=== PATIENT | male | born 1940 | race Caucasian/White ===

== ENCOUNTER 2018-06-14 22:51 | Inpatient (IN) ==
[2018-06-15] MEDS ORDERED: Acetaminophen 325 MG Tablet PO PRN (03:58)
[2018-06-15] MEDS ORDERED: Bisacodyl 10 MG Supp RECTAL PRN (03:58)
[2018-06-15] MEDS: Sod Chloride 0.9% Inj 1,000 ML IV.CONT SCH (04:48)
[2018-06-15 08:06] LABS: Baso # (Auto) 0.1 th/mm3 (0.0-0.2); Baso % (Auto) 0.9 % (0.0-2.0); Eos # (Auto) 0.1 th/mm3 (0.0-0.4); Eos % (Auto) 0.8 % (0.0-4.0); Hemoglobin 12.1 gm/dL (13.0-17.0); Lymph # (Auto) 1.6 th/mm3 (1.0-4.8); Lymph % (Auto) 25.2 % (9.0-44.0); Mean Corpuscular HGB Conc 33.6 % (32.0-36.0); Mean Corpuscular Hemoglobin 31.4 pg (27.0-34.0); Mean Corpuscular Volume 93.4 fL (80.0-100.0); Mean Platelet Volume 9.3 fL (7.0-11.0); Mono # (Auto) 0.6 th/mm3 (0.0-0.9); Mono % (Auto) 9.8 % (0.0-8.0); Neut % (Auto) 63.3 % (16.0-70.0); Platelet Count 189 th/mm3 (150-450); Red Blood Count 3.85 mil/mm3 (4.50-5.90); Red Cell Distribution Width 12.7 % (11.6-17.2); White Blood Count 6.4 th/mm3 (4.0-11.0)
[2018-06-15 08:19] LABS: Chloride 106 meq/L (98-107); Potassium 3.8 meq/L (3.5-5.1); Sodium 141 meq/L (136-145)
[2018-06-15 08:28] LABS: Albumin 3.3 g/dL (3.4-5.0); Anion Gap 10 meq/L (5-15); Blood Urea Nitrogen 14 mg/dL (7-18); Calcium 8.6 mg/dL (8.5-10.1); Carbon Dioxide 24.9 meq/L (21.0-32.0); Glucose,Random 230 mg/dL (74-106)
[2018-06-15 08:31] LABS: Alanine Aminotransferase 16 U/L (12-78); Aspartate Aminotransferase 7 U/L (15-37); Glomerular Filtration Rate Greater Than 89 mL/min (>89)
[2018-06-15 08:33] LABS: Total Protein 6.2 g/dL (6.4-8.2)
[2018-06-15 08:34] LABS: Alkaline Phosphatase 63 U/L (45-117)
[2018-06-15] MEDS: Senna/Docusate Sodium 8.6/50 MG Tablet PO SCH ×2 (09:27→21:48)
[2018-06-15] MEDS ORDERED: Haloperidol Inj 5 MG/ML Ampul IV.PUSH PRN ×2 (15:24→15:31)
--- NOTE | 2018-06-15 15:28 | P.HPIM ---
History of Present Illness Primary Care Physician: Gagan Fermin History of Present Illness: 77-year-old Citizen Of The [place] male with known history of hypertension, hyperlipidemia, diabetes who presented to the hospital for evaluation of altered mental status. The patient is orientated to self, state, not the city. He knows he is in the hospital. He knows the month and year. But not day of the week. He does know Top[place] is the president and is trying to build a wall. However patient does have some altered mentation and information was taken from family at bedside. It was indicated that the patient had glaucoma surgery on his right eye about 6 months ago and since then he has had a change in mentation. They indicate a change in mentation has been with memory problems, visual hallucinations. Somewhat mentioned to him that he may be developing dementia. They indicated that they did notify their primary medical doctor and they were told that they needed to get a referral to a neurologist for further evaluation and management. Because the patient has not get any better they came to the hospital for evaluation. 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 They indicate that the patient was rather active. Drinker anywhere from 4 or more beers daily. Patient's indicates that since he had his glaucoma surgery he has cut back on his alcohol intake and since then his mentation has worsened. Patient had evaluation in emergency department and found to have uncontrolled diabetes, possible urinary tract infection and because of that it was recommended that the patient be observed in the hospital for further evaluation and management. Review of Systems ROS Unobtainable: unobtainable due to mental status PMFSH History History Provided By: Family Member Medical History Medical History Hyperlipidemia (Acute) HTN (hypertension) (Acute) Prostate CA (Acute) Type 2 diabetes mellitus (Acute) Surgical History Surgical History H/O eye surgery (Acute) Family History Family History Other Family history of diabetes mellitus Family history of heart disease Social History Social History Substance History: No History of Abuse Second Hand Smoke Exposure: No Smoking Status: Never smoker How Often Do You Have a Drink Containing Alcohol: 2 to 4 times a month Immunization History Hx Influenza Vaccine This Season: No Medications and Allergies Allergies Allergy/AdvReac Type Severity Reaction Status Date / Time No Known Allergies Allergy Verified 06/15/18 00:40 Home Medications Medication Instructions Recorded Confirmed Type metformin 500 mg PO BID 06/15/18 06/15/18 History Active Medications: Active Medications Acetaminophen (Tylenol) 650 mg PO Q4H PRN PRN Reason: Temp > 100.4 Al Hydroxide/Mg Hydroxide (Milk Of Magnesia Liq) 30 ml PO Q12H PRN PRN Reason: Mild Constipation Bisacodyl (Dulcolax Supp) 10 mg RECTAL DAILY PRN PRN Reason: SEVERE CONSITIPATION Sodium Chloride (Ns Inj) 1,000 mls @ 100 mls/hr IV.CONT .Q10H [facility] Last Admin: 06/15/18 04:48 Dose: 100 mls/hr Lactulose (Lactulose Liq) 30 ml PO DAILY PRN PRN Reason: SEVERE CONSITIPATION Ondansetron HCl (Zofran Inj) 4 mg IV.PUSH Q6H PRN PRN Reason: NAUSEA OR VOMITING Senna/Docusate Sodium (Kristi-Colace) 1 tab PO BID [facility] Last Admin: 06/15/18 09:27 Dose: 1 tab Sennosides (Senokot) 17.2 mg PO Q12H PRN PRN Reason: Moderate Constipation Sodium Chloride (Ns Flush) 2 ml IV.FLUSH BID [facility] Last Admin: 06/15/18 11:35 Dose: Not Given Sodium Chloride (Ns Flush) 2 ml IV.FLUSH PRN PRN PRN Reason: FLUSH AFTER USING IV ACCESS Physical Exam Vital signs: Vital Signs 06/15/18 04:00 06/15/18 08:00 Temperature 96.8 F L 97.8 F Pulse Rate 96 H 91 H Respiratory Rate 16 20 Blood Pressure 166/81 H 139/72 Pulse Oximetry 96 97 Intake & Output 06/14/18 06/15/18 06/15/18 18:59 06:59 18:59 Intake Total 0 / 0 Output Total 200 / 200 Balance -200 / -200 0 / 0 Weight 60.6 kg Intake: Oral 0 / 0 Output: Urine 200 / 200 Narrative: GENERAL: Well-developed, well-nourished, in no acute distress. alert and orientated to person, state, month, year, president, current events HEENT: Head is normocephalic without any lesions or masses noted. Facial features are symmetric. Eyes: Patient does have injected conjunctivae on the right eye with obvious surgical changes extraocular muscles are intact. Oropharyngeal: Pharynx without any erythema edema. Tongue is midline without deviation. Buccal mucosa is moist without any masses or lesions NECK: Supple without any masses. Trachea midline no deviation. No JVD, no bruits are appreciated CARDIAC: Regular rhythm, regular rate. S1/S2 are heard. No murmurs gallops or rubs. LUNGS: Clear to auscultation bilaterally. No wheeze, rhonchi or rales. No use of accessory muscles on inspiration or expiration. ABDOMEN: Soft, nontender. Nondistended. Bowel sounds heard in all 4 quadrants. No organomegaly or masses. Negative rebound, negative guarding EXTREMITIES: No edema, pulses are equal bilaterally. No cyanosis or clubbing NEUROLOGY: Mood and affect appear appropriate. Cranial nerves II through XII grossly intact. Muscle strength 5/5 in upper and lower extremities bilaterally. Deep tendon reflexes are 2+ in upper and lower extremities bilaterally. Results Labs CBC & Chem 7: 06/15/18 06:51 06/15/18 06:51 Caprini VTE Risk Assessment Caprini VTE Risk Assessment: Moderate/High Risk (score >= 2) Caprini Risk Assessment Model: Point Value = 1 Point Value = 2 Point Value = 3 Point Value = 5 Age 41-60 Minor surgery BMI > 25 kg/m2 Swollen legs Varicose veins or History of unexplained or recurrent spontaneous Oral contraceptives or hormone replacement Sepsis (< 1 month) Serious lung disease, including pneumonia (< 1 month) Abnormal pulmonary function Acute myocardial infarction Congestive heart failure (< 1 month) History of inflammatory bowel disease Medical patient at bed rest Age 61-74 Arthroscopic surgery Major open surgery (> 45 min) Laparoscopic surgery (> 45 min) Malignancy Confined to bed (> 72 hours) Immobilizing plaster cast Central venous access Age >= 75 History of VTE Family history of VTE Factor V Leiden Prothrombin [id number] Lupus anticoagulant Anticardiolipin antibodies Elevated serum homocysteine Heparin-induced thrombocytopenia Other congenital or acquired thrombophilia Stroke (< 1 month) Elective arthroplasty Hip, pelvis, or leg fracture Acute spinal cord injury (< 1 month) Prophylaxis Regimen: Total Risk Factor Score Risk Level Prophylaxis Regimen 0-1 Low Early ambulation 2 Moderate Order ONE of the following: *Sequential Compression Device (SCD) *Heparin 5000 units SQ BID 3-4 Higher Order ONE of the following medications: *Heparin 5000 units SQ TID *Enoxaparin/Lovenox 40 mg SQ daily (WT < 150 kg, CrCl > 30 mL/min) *Enoxaparin/Lovenox 30 mg SQ daily (WT < 150 kg, CrCl > 10-29 mL/min) *Enoxaparin/Lovenox 30 mg SQ BID (WT < 150 kg, CrCl > 30 mL/min) AND/OR *Sequential Compression Device (SCD) 5 or more Highest Order ONE of the following medications: *Heparin 5000 units SQ TID (Preferred with Epidurals) *Enoxaparin/Lovenox 40 mg SQ daily (WT < 150 kg, CrCl > 30 mL/min) *Enoxaparin/Lovenox 30 mg SQ daily (WT < 150 kg, CrCl > 10-29 mL/min) *Enoxaparin/Lovenox 30 mg SQ BID (WT < 150 kg, CrCl > 30 mL/min) AND *Sequential Compression Device (SCD) Assessment and Plan Plan Altered mentation, unknown etiology Appears to be chronic but could have an acute component. Could be secondary to underlying dementia, alcohol delirium, acute CVA, underlying psychiatric illness, urinary tract infection, metabolic encephalopathy secondary to uncontrolled diabetes CT of the brain was unremarkable for any acute abnormality Obtain MRI of the brain to rule out any acute abnormality Obtain additional labs to include sed rate, B12, folate, lipid panel, RPR Ammonia level was normal, TSH was normal Obtain EEG Neurology consultation Patient requiring restraints Haldol as needed Diabetes, uncontrolled Diabetic diet Accu-Cheks with sliding scale insulin Urinary tract infection Nursing staff indicated that the patient had Garcia inserted due to acute urinary retention Urinalysis does show significant amount of epithelial cells, possible contamination. Await culture for further antibiotic recommendations Daily alcohol use Need to monitor for withdrawal CIWA protocol Start thiamine and folic acid DVT prevention Sequential compression devices Discussed Condition With: Patient, family at bedside, nursing staff, Dr. Choi H&P: Quality VTE Deep Vein Thrombosis/Pulmonary Embolism Present on Admission: No
[2018-06-15] MEDS ORDERED: Dextrose 50% in Water 50 ML Vial IV.PUSH PRN (15:29)
[2018-06-15] MEDS ORDERED: LORazepam 1 MG Tablet PO PRN (15:31)
[2018-06-15] MEDS: Folic Acid 1 MG Tablet PO SCH (17:34)
[2018-06-15] MEDS: Insulin NovoLOG Aspart Correctional Sugar Inj SQ SCH ×2 (17:35→21:47)
[2018-06-15 20:42] LABS: Folate 15.4 ng/mL (3.1-17.5)
--- NOTE | 2018-06-15 20:50 | MG ---
cc: Norman Clark MD ELECTROENCEPHALOGRAM RECORD NUMBER: [id number] DESCRIPTION: A 6-7 Hz theta activity, 10-30 microvolts with admixed low-amplitude delta activity suggestive of drowsy state. Frequent eye movement artifact. Limited driving with photic stimulation. Single-lead EKG showing sinus rhythm. INTERPRETATION: Mild encephalopathy and possible sleep state. Clinical correlation. MD RIVKA Solorzano/gabo , 08:27 PM , 08:31 PM
[2018-06-16] MEDS: Sod Chloride 0.9% Inj 1,000 ML IV.CONT SCH ×3 (01:23→10:43)
[2018-06-16 06:29] LABS: Potassium 3.6 meq/L (3.5-5.1)
[2018-06-16 06:30] LABS: Baso # (Auto) 0.1 th/mm3 (0.0-0.2); Baso % (Auto) 1.2 % (0.0-2.0); Eos % (Auto) 0.5 % (0.0-4.0); Hematocrit 36.1 % (39.0-51.0); Hemoglobin 12.5 gm/dL (13.0-17.0); Lymph # (Auto) 1.3 th/mm3 (1.0-4.8); Lymph % (Auto) 19.5 % (9.0-44.0); Mean Corpuscular HGB Conc 34.6 % (32.0-36.0); Mean Corpuscular Hemoglobin 32.4 pg (27.0-34.0); Mean Corpuscular Volume 93.6 fL (80.0-100.0); Mean Platelet Volume 9.7 fL (7.0-11.0); Mono # (Auto) 0.6 th/mm3 (0.0-0.9); Mono % (Auto) 9.4 % (0.0-8.0); Neut # (Auto) 4.8 th/mm3 (1.8-7.7); Neut % (Auto) 69.4 % (16.0-70.0); Platelet Count 197 th/mm3 (150-450); Red Blood Count 3.86 mil/mm3 (4.50-5.90); Red Cell Distribution Width 12.8 % (11.6-17.2); White Blood Count 6.8 th/mm3 (4.0-11.0)
[2018-06-16 06:40] LABS: Calcium 8.5 mg/dL (8.5-10.1)
[2018-06-16 06:41] LABS: Carbon Dioxide 20.1 meq/L (21.0-32.0)
[2018-06-16] MEDS: Folic Acid 1 MG Tablet PO SCH (07:59)
[2018-06-16] MEDS: Insulin NovoLOG Aspart Correctional Sugar Inj SQ SCH ×4 (07:59→20:38)
[2018-06-16] MEDS: Senna/Docusate Sodium 8.6/50 MG Tablet PO SCH ×2 (07:59→20:23)
--- NOTE | 2018-06-16 08:27 | P.PNIM ---
Subjective Interval history: 77-year-old male who is seen examined today for follow-up on altered mental status. According to he appears to be more alert today than yesterday. Patient denies any complaints. Pressure is mildly elevated. Patient remains afebrile. Physical Exam Vital signs: Vital Signs 06/15/18 12:00 06/15/18 20:00 06/16/18 00:00 Temperature 96.9 F L 98.9 F 98.8 F Pulse Rate 116 H 106 H 112 H Respiratory Rate 20 18 16 Blood Pressure 140/93 H 154/87 H 185/91 H Pulse Oximetry 97 97 98 Intake & Output 06/15/18 06/16/18 06/16/18 18:59 06:59 18:59 Intake Total 1280 / 1280 1000 / 1000 Output Total 1500 / 1500 Balance 1280 / 1280 -500 / -500 Weight 62.3 kg Intake: IV 1000 / 1000 1000 / 1000 NS Inj 1,000 ML @ 100 mls/hr IV 1000 / 1000 1000 / 1000 .CONT .Q10H [facility] Rx#:[id number] Oral 280 / 280 Output: Urine 1500 / 1500 Narrative: GENERAL: Well-developed, well-nourished, in no acute distress. alert and orientated to person, day of the week, year. Thinks he is in [place], HEENT: Head is normocephalic without any lesions or masses noted. Facial features are symmetric. Eyes: Patient does have injected conjunctivae on the right eye with obvious surgical changes extraocular muscles are intact. NECK: Supple without any masses. Trachea midline no deviation. No JVD, CARDIAC: Regular rhythm, regular rate. S1/S2 are heard. No murmurs gallops or rubs. LUNGS: Clear to auscultation bilaterally. No wheeze, rhonchi or rales. No use of accessory muscles on inspiration or expiration. ABDOMEN: Soft, nontender. Nondistended. Bowel sounds heard in all 4 quadrants. No organomegaly or masses. Negative rebound, negative guarding EXTREMITIES: No edema, pulses are equal bilaterally. No cyanosis or clubbing NEUROLOGY: Mood and affect appear appropriate. Cranial nerves II through XII grossly intact. Moving all extremities, speech is clear. Patient is in restraints. Results Labs CBC & Chem 7: 06/16/18 05:15 06/16/18 05:15 Assessment and Plan Plan Altered mentation, unknown etiology Appears to be chronic but could have an acute component. Could be secondary to underlying dementia, alcohol delirium, acute CVA, underlying psychiatric illness, urinary tract infection, metabolic encephalopathy secondary to uncontrolled diabetes CT of the brain was unremarkable for any acute abnormality MRI of the brain: Faint subcortical signal changes including slightly restricted diffusion and mild enhancement of the right frontal lobe and adjacent basal ganglia, probably a subacute to chronic infarct. A low-grade/ mild encephalitis is conceivable but considered less likely. Clinical correlation and MRI surveillance recommended. Additional labs to include sed rate, B12, folate, Ammonia level was normal, TSH was normal were unremarkable Awaiting RPR EEG: Mild encephalopathy and possible sleep state. Clinical correlation. Patient requiring restraints Haldol as needed Consult Neurology for further recommendations Hypertension, hyperlipidemia LDL 36 Start Norvasc 10 mg daily Nursing staff to obtain accurate medication list and resume home medications Vasotec as needed Diabetes, uncontrolled Diabetic diet Accu-Cheks with sliding scale insulin Urinary tract infection Nursing staff indicated that the patient had Garcia inserted due to acute urinary retention Urinalysis does show significant amount of epithelial cells, possible contamination. Await culture for further antibiotic recommendations Daily alcohol use Need to monitor for withdrawal CIWA protocol, CIWA score is 0-8 Continue thiamine and folic acid DVT prevention Sequential compression devices Progress Note: Quality VTE Deep Vein Thrombosis/Pulmonary Embolism Present on Admission: No
[2018-06-16 10:14] LABS: Chol/HDL Ratio 1.83 Ratio; HDL Cholesterol 62.1 mg/dL (40.0-60.0)
[2018-06-16] MEDS: amLODIPine 10 MG Tablet PO SCH (10:42)
[2018-06-16] MEDS ORDERED: Gadobutrol PF 2 MMOL/2 ML Vial (for RAD) IV.SIG ONE (13:17)
--- NOTE | 2018-06-16 14:11 | MR ---
EXAM DATE: 06/16/2018 1:26 PM EST AGE/SEX: 77 years / Male INDICATIONS: Memory loss. CLINICAL DATA: This is the patient's subsequent encounter. Patient reports that signs and symptoms h ave been present for 2 days and indicates a pain score of 3/10. MEDICAL/SURGICAL HISTORY: Diabetes mellitus type II. Hypertension. Carcinoma, prostatic. . Gl aucoma surgery COMPARISON: [facility], CT HEAD W/O CONTRAST, 06/15/2018. . TECHNIQUE: Multiplanar, multisequence examination of the brain was performed without and with 6 ml Ga davist (gadobutrol) contrast as a single exam dose. FINDINGS: There is atrophy and severe, chronic FLAIR signal abnormality in the white matter of both cerebral he mispheres. There is faintly restricted diffusion involving the right frontal lobe and with mild subco rtical enhancement likely a late subacute infarct with some early laminar necrosis. A mild intensity and slightly nodular focus of enhancement is seen in the right basal ganglia measuring approximately 4 mm, less specific but best seen on the axial images and not considerably masslike on the coronal im ages, probably not a true mass. No intracranial hemorrhage demonstrated. No mass effect or midline shift. CONCLUSION: 1. Faint subcortical signal changes including slightly restricted diffusion and mild enhancement of the right frontal lobe and adjacent basal ganglia, probably a subacute to chronic infarct. A low-grad e/mild encephalitis is conceivable but considered less likely. Clinical correlation and MRI surveilla nce recommended. 2. Atrophy and severe chronic white matter changes. Electronically signed by: Naveen Burgos MD Board Certified Radiologist 06/16/2018 2:10 PM EST
--- NOTE | 2018-06-16 18:14 | MB ---
cc: Jean Claude Tong MD, PhD DATE: 06/16/2018 REASON FOR CONSULTATION: Mental status change. HISTORY OF PRESENT ILLNESS: Mr. Bedoya is a 77-year-old man, who has had progressive decline in mental status with more confusion, disorientation over the past 6 months following surgery for glaucoma. He has not had any headaches, fevers, or chills. PAST MEDICAL HISTORY: History of hypertension, prostate cancer, diabetes, glaucoma. CURRENT MEDICATIONS: Ativan p.r.n., Zofran p.r.n., Colace, Senokot, vitamin B1. NEUROLOGIC EXAMINATION: VITAL SIGNS: Blood pressure is 154/87, pulse 100, respirations 18, temperature 98.9 degrees. 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 Alert. He can tell me the year and the day. He has poor recent memory. He is able to follow commands. Cranial nerves intact. Neck is supple. No meningismus. Motor exam: No focal deficits identified. IMAGING: MRI of the brain is reviewed, and there is evidence for chronic severe white matter ischemic change bilaterally. Some encephalomalacia identified in the right frontal area. There is a small area of increased signal on diffusion images in the right frontal area, suggesting subacute infarction, less likely encephalitis. LABORATORY DATA: White count is 6400, hemoglobin is 12.1, hematocrit 36%, platelet count 189,000. Sedimentation rate is 10. Sodium 142, potassium 3.6, chloride 106, CO2 of 20, BUN is 11, creatinine 0.86. GFR is 87. Glucose 262. LDL 36, HDL 62. IMPRESSION: Alteration in mental status, suspect this may be related to frontal stroke, also, a multi-infarct type of dementia. RECOMMENDATION: Lumbar puncture to rule out encephalitis or chronic infection. I also recommend carotid ultrasound and echocardiogram. He did have an EEG, result is pending. Jean Claude Tong MD, PhD MARI/rh , 05:01 PM , 05:08 PM
[2018-06-16 20:17] LABS: Prothrombin Time 9.8 sec (9.8-11.6)
--- NOTE | 2018-06-16 20:36 | US ---
EXAM DATE: 06/16/2018 8:31 PM EST AGE/SEX: 77 years / Male INDICATIONS: Cerebrovascular accident. CLINICAL DATA: This is the patient's initial encounter. Patient reports that signs and symptoms have been present for 2 days and indicates a pain score of 2/10. MEDICAL/SURGICAL HISTORY: Hypertension. Hyperlipidemia. Prostate cancer. Diabetes. . Eye surge ry. COMPARISON: No prior exams available for comparison. VELOCITY PARAMETERS: ICA/CCA Ratio: Right 1.1 , Left 0.9 ICA: Right 106 cm/sec, Left 109 cm/sec CCA: Right 109 cm/sec, Left 157 cm/sec ECA: Right 102 cm/sec, Left 129 cm/sec Vertebral: Right 49 cm/sec antegrade, Left 40 cm/sec antegrade FINDINGS: Right Carotid: Mild arteriosclerotic plaque is visualized.The waveforms are within normal limits. Left Carotid: Mild arteriosclerotic plaque is visualized. The waveforms are within normal limits. Other: None. CONCLUSION: 1. Right Internal Carotid Artery: No significant stenosis or atherosclerotic plaque is visualized. 2. Left Internal Carotid Artery: No significant stenosis or atherosclerotic plaque is visualized. Electronically signed by: Chinedu Ceron MD Board Certified Radiologist 06/16/2018 8:34 PM EST
[2018-06-16 22:41] LABS: Hemoglobin A1c 13.6 % (4.3-6.0)
[2018-06-16] MEDS: Labetalol 100 MG Tablet PO SCH (23:01)
[2018-06-17] MEDS: Senna/Docusate Sodium 8.6/50 MG Tablet PO SCH ×2 (08:50→20:34)
[2018-06-17] MEDS: amLODIPine 10 MG Tablet PO SCH (08:50)
[2018-06-17] MEDS: Labetalol 100 MG Tablet PO SCH ×2 (08:50→20:33)
[2018-06-17] MEDS: Folic Acid 1 MG Tablet PO SCH (08:50)
[2018-06-17] MEDS: Insulin NovoLOG Aspart Correctional Sugar Inj SQ SCH ×4 (08:51→20:33)
--- NOTE | 2018-06-17 09:54 | P.RAD ---
Post Procedure Progress Note - Pre Procedure Diagnosis (1) Mental status alteration - Post Procedure Diagnosis (1) Mental status alteration - Procedure Information Procedure Date: 06/17/18 Supervising Radiologist: Bryan Sebastian MD Anesthesia: Local - Plan of Activity Patient to Unit: Nursing Unit Patient Condition: Fair See PACS Report for procedural detail/treatment. Spinal Procedure Lumbar Puncture L2-L3 Fluid Removal (CCs): 12 Fluid Description: Bloody
[2018-06-17] MEDS: Sod Chloride 0.9% Inj 1,000 ML IV.CONT SCH ×4 (09:59→18:27)
--- NOTE | 2018-06-17 10:03 | IR ---
EXAM DATE: 06/17/2018 9:55 AM EST AGE/SEX: 77 years / Male INDICATIONS: Patient presents with altered mental status in need of lumbar puncture to rule out ence phalitis. CLINICAL DATA: This is the patient's initial encounter. Patient reports that signs and symptoms have been present for 2 days and indicates a pain score of 0/10. MEDICAL/SURGICAL HISTORY: . Prostate cancer, Glaucoma, HTN, Diabetes, Hyperlipidemia. . Eye cohen rgery. COMPARISON: . FLUORO TIME (min): 0.68 IMAGE SERIES: 1 RADIATION DOSE: 9 mGy CAK ACCESS SITE: L2-3 LUMBAR PUNCTURE TIME: 09:32 hours FLUID: Total volume of 11 cc of clear fluid was removed. Fluid was sent to lab for ordered studies. ; . . PROCEDURE: 1. Fluoroscopic guided lumbar puncture. The risks, benefits and alternatives to the procedure were explained and verbal and written consent w as obtained. The site was prepped in sterile fashion. Full sterile technique was used, including ca p, mask, sterile gloves and gown and a large sterile sheet. Hand hygiene and 2% chlorhexidine and/or betadine/alcohol prep was utilized per protocol for cutaneous antisepsis. The skin and subcutaneous tissues were infiltrated with local anesthetic solution. With fluoroscopic guidance the lumbar thecal sac was punctured at the level above. The fluid describ ed above was removed without difficulty. The patient tolerated the procedure well and there were no complications. CONCLUSION: 1. Uncomplicated fluoroscopically guided lumbar puncture. Electronically signed by: Bryan Sebastian MD Board Certified Radiologist 06/17/2018 10:02 AM EST
[2018-06-17 10:48] LABS: RBC on Tube 4 1690 /mm3
--- NOTE | 2018-06-17 12:27 | P.PNIM ---
Subjective Interval history: Follow-up encephalopathy June 17, 2018patient seen and examined, returned from lumbar puncture. He was being fed by his . States, his condition has improved and patient is much more alert. Physical Exam Vital signs: Vital Signs 06/16/18 16:00 06/16/18 20:00 06/16/18 20:30 Temperature 97.2 F L 98.5 F Pulse Rate 107 H 124 H Respiratory Rate 20 18 Blood Pressure 156/78 H 181/86 H 158/80 H Pulse Oximetry 95 90 L 06/16/18 23:55 06/17/18 00:00 06/17/18 01:17 Temperature 97.5 F L Pulse Rate 120 H 85 Respiratory Rate 18 Blood Pressure 180/103 H 109/63 Pulse Oximetry 98 98 06/17/18 04:00 06/17/18 07:48 06/17/18 08:00 Temperature 98.4 F 97.4 F L Pulse Rate 84 95 H Respiratory Rate 18 20 Blood Pressure 138/65 146/67 H Pulse Oximetry 97 97 97 Intake & Output 06/16/18 06/17/18 06/17/18 18:59 06:59 18:59 Intake Total 1420 / 1420 90 / 90 480 / 480 Output Total 2200 / 2200 850 / 850 Balance 1420 / 1420 -2110 / -2110 -370 / -370 Weight 60.5 kg Intake: IV 1000 / 1000 NS Inj 1,000 ML @ 100 mls/hr IV 1000 / 1000 .CONT .Q10H [facility] Rx#:[id number] Oral 420 / 420 90 / 90 480 / 480 Output: Urine 2200 / 2200 400 / 400 Urine Amount (Catheter) 450 / 450 Indwelling Urethral Catheter 450 / 450 Other: Date of Last Bowel Movement 06/16/18 06/14/18 Narrative: GENERAL: Well-developed, well-nourished, in no acute distress. HEENT: Head is normocephalic without any lesions or masses noted. Facial features are symmetric. Eyes: Patient does have injected conjunctivae on the right eye with obvious surgical changes extraocular muscles are intact. NECK: Supple without any masses. Trachea midline no deviation. No JVD, CARDIAC: Regular rhythm, regular rate. S1/S2 are heard. No murmurs gallops or rubs. LUNGS: Clear to auscultation bilaterally. No wheeze, rhonchi or rales. No use of accessory muscles on inspiration or expiration. ABDOMEN: Soft, nontender. Nondistended. Bowel sounds heard in all 4 quadrants. No organomegaly or masses. Negative rebound, negative guarding EXTREMITIES: No edema, pulses are equal bilaterally. No cyanosis or clubbing NEUROLOGY: Mood and affect appear appropriate. Cranial nerves II through XII grossly intact. Moving all extremities, speech is clear. Urinary Catheter Management Indwelling Urethral Catheter: Cath placed during this visit: no Reason for continuing: Acute urinary retention Results Labs CBC & Chem 7: 06/16/18 05:15 06/16/18 05:15 Labs: Microbiology 06/17/18 09:32 Lumbar Puncture Gram Stain - Final Imaging Imaging: Impressions Carotid Doppler Study 06/16/18 00:00 CONCLUSION: 1. Right Internal Carotid Artery: No significant stenosis or atherosclerotic plaque is visualized. 2. Left Internal Carotid Artery: No significant stenosis or atherosclerotic plaque is visualized. Head MRI 06/16/18 00:00 CONCLUSION: 1. Faint subcortical signal changes including slightly restricted diffusion and mild enhancement of the right frontal lobe and adjacent basal ganglia, probably a subacute to chronic infarct. A low-grade/mild encephalitis is conceivable but considered less likely. Clinical correlation and MRI surveillance recommended. 2. Atrophy and severe chronic white matter changes. Lumbar Puncture Fluoroscopy 06/17/18 00:00 CONCLUSION: 1. Uncomplicated fluoroscopically guided lumbar puncture. Assessment and Plan Plan 77-year-old man with Encephalopathy CT of the brain was unremarkable for any acute abnormality MRI of the brain: Faint subcortical signal changes including slightly restricted diffusion and mild enhancement of the right frontal lobe and adjacent basal ganglia, probably a subacute to chronic infarct. A low-grade/ mild encephalitis is conceivable but considered less likely. Clinical correlation and MRI surveillance recommended. Additional labs to include sed rate, B12, folate, Ammonia level was normal, TSH was normal were unremarkable Awaiting RPR EEG: Mild encephalopathy and possible sleep state. Clinical correlation. Haldol as needed Appreciate input from neurology Status post lumbar puncture 06/17 pending culture and reports Hypertension, hyperlipidemia Currently on Norvasc 10 mg daily Vasotec as needed Diabetes, uncontrolled We will start low-dose Levemir 5 units at at bedtime Accu-Cheks with sliding scale insulin Urinary tract infection UA negative Daily alcohol use Need to monitor for withdrawal CIWA protocol Continue thiamine and folic acid DVT prevention Sequential compression devices Progress Note: Quality VTE Deep Vein Thrombosis/Pulmonary Embolism Present on Admission: No
--- NOTE | 2018-06-17 17:28 | ECHRPT ---
Indication: CVA/TIA CONCLUSIONS Normal left ventricular size. Wall thickness is normal. The left ventricular systolic function is normal with an estimated ejection fraction in the range of 55-60%. Mitral annular calcification is present. There is trace tricuspid valve regurgitation. The estimated pulmonary arterial pressure is 38 mmHg. BP: / HR: Rhythm: MEASUREMENTS (Male / Female) Normal Values Technical Quality:Fair 2D ECHO LV Diastolic Diameter PLAX 3.6 cm 4.2 - 5.9 / 3.9 - 5.3 cm LV Systolic Diameter PLAX 2.7 cm IVS Diastolic Thickness 1.0 cm 0.6 - 1.0 / 0.6 - 0.9 cm LVPW Diastolic Thickness 1.0 cm 0.6 - 1.0 / 0.6 - 0.9 cm LV Relative Wall Thickness 0.5 RV Internal Dim ED PLAX 3.1 cm Aortic Root Diameter 3.3 cm LA Systolic Diameter LX 2.6 cm 3.0 - 4.0 / 2.7 - 3.8 cm M-MODE AV Cusp Separation MM 2.0 cm DOPPLER AV Peak Velocity 149.0 cm/s AV Peak Gradient 8.9 mmHg LVOT Peak Velocity 94.8 cm/s LVOT Peak Gradient 3.6 mmHg Mitral E Point Velocity 74.0 cm/s Mitral A Point Velocity 128.0 cm/s Mitral E to A Ratio 0.6 LV E' Lateral Velocity 7.8 cm/s Mitral E to LV E' Lateral Ratio 9.5 LV E' Septal Velocity 7.8 cm/s Mitral E to LV E' Septal Ratio 9.5 TR Peak Velocity 265.0 cm/s TR Peak Gradient 28.1 mmHg Right Atrial Pressure 10.0 mmHg Pulmonary Artery Systolic Pressu 38.1 mmHg Right Ventricular Systolic Press 38.1 mmHg PV Peak Velocity 90.9 cm/s PV Peak Gradient 3.3 mmHg FINDINGS LEFT VENTRICLE Normal left ventricular size. Wall thickness is normal. The left ventricular systolic function is normal with an estimated ejection fraction in the range of 55-60%. No regional wall motion abnormalities are present. RIGHT VENTRICLE Normal right ventricular size and systolic function. LEFT ATRIUM The left atrial size is normal. RIGHT ATRIUM The right atrial size is normal. ATRIAL SEPTUM Normal atrial septal thickness without atrial level shunting by limited color doppler interrogation. AORTA The aortic root and proximal ascending aorta are normal in size on limited imaging. MITRAL VALVE Mild thickening of the mitral valve leaflets. Mitral annular calcification is present. No mitral valve stenosis or regurgitation. AORTIC VALVE Trileaflet aortic valve. No aortic valve stenosis or regurgitation. TRICUSPID VALVE There is trace tricuspid valve regurgitation. The estimated pulmonary arterial pressure is 38 mmHg. PULMONARY VALVE No pulmonary valve regurgitation or stenosis. VESSELS The inferior vena cava was not well visualized. PERICARDIUM No pericardial effusion. Bartolome Pickering (Electronically Signed) Final Date:17 June 2018 17:27
[2018-06-17] MEDS: Insulin Detemir Inj 1,000 UNIT/10 ML Vial SQ SCH (20:33)
[2018-06-18] MEDS: Senna/Docusate Sodium 8.6/50 MG Tablet PO SCH ×4 (00:18→22:10)
[2018-06-18] MEDS: Labetalol 100 MG Tablet PO SCH ×5 (00:19→22:09)
[2018-06-18] MEDS: Sod Chloride 0.9% Inj 1,000 ML IV.CONT SCH ×2 (04:19→14:30)
[2018-06-18 06:45] LABS: Baso # (Auto) 0.1 th/mm3 (0.0-0.2); Baso % (Auto) 1.3 % (0.0-2.0); Eos # (Auto) 0.2 th/mm3 (0.0-0.4); Eos % (Auto) 3.8 % (0.0-4.0); Hematocrit 35.1 % (39.0-51.0); Hemoglobin 11.9 gm/dL (13.0-17.0); Lymph # (Auto) 1.3 th/mm3 (1.0-4.8); Lymph % (Auto) 27.1 % (9.0-44.0); Mean Corpuscular HGB Conc 33.8 % (32.0-36.0); Mean Corpuscular Hemoglobin 31.6 pg (27.0-34.0); Mean Corpuscular Volume 93.4 fL (80.0-100.0); Mean Platelet Volume 9.3 fL (7.0-11.0); Mono # (Auto) 0.4 th/mm3 (0.0-0.9); Mono % (Auto) 9.1 % (0.0-8.0); Neut # (Auto) 2.9 th/mm3 (1.8-7.7); Neut % (Auto) 58.7 % (16.0-70.0); Platelet Count 182 th/mm3 (150-450); Red Blood Count 3.76 mil/mm3 (4.50-5.90); Red Cell Distribution Width 12.8 % (11.6-17.2); White Blood Count 4.9 th/mm3 (4.0-11.0)
[2018-06-18 07:03] LABS: Chloride 107 meq/L (98-107); Potassium 3.8 meq/L (3.5-5.1); Sodium 142 meq/L (136-145)
[2018-06-18 07:10] LABS: Anion Gap 9 meq/L (5-15); Calcium 8.4 mg/dL (8.5-10.1); Carbon Dioxide 25.8 meq/L (21.0-32.0); Glucose,Random 197 mg/dL (74-106)
[2018-06-18 07:11] LABS: Blood Urea Nitrogen 9 mg/dL (7-18)
[2018-06-18 07:13] LABS: Alanine Aminotransferase 17 U/L (12-78); Aspartate Aminotransferase 11 U/L (15-37)
[2018-06-18 07:14] LABS: Glomerular Filtration Rate Greater Than 89 mL/min (>89)
[2018-06-18 07:15] LABS: Total Protein 6.1 g/dL (6.4-8.2)
[2018-06-18 07:16] LABS: Alkaline Phosphatase 67 U/L (45-117)
[2018-06-18] MEDS: amLODIPine 10 MG Tablet PO SCH ×2 (07:24→09:21)
[2018-06-18] MEDS: Folic Acid 1 MG Tablet PO SCH ×2 (07:24→09:21)
[2018-06-18] MEDS: Insulin NovoLOG Aspart Correctional Sugar Inj SQ SCH ×4 (07:25→22:10)
--- NOTE | 2018-06-18 08:40 | P.PNNEU ---
Subjective Subjective Comments: more alert. His thinks he is less confused Active Medications: Active Medications Acetaminophen (Tylenol) 650 mg PO Q4H PRN PRN Reason: Temp > 100.4 Al Hydroxide/Mg Hydroxide (Milk Of Magnesia Liq) 30 ml PO Q12H PRN PRN Reason: Mild Constipation Amlodipine Besylate (Norvasc) 10 mg PO DAILY [facility] Last Admin: 06/18/18 07:24 Dose: 10 mg Bisacodyl (Dulcolax Supp) 10 mg RECTAL DAILY PRN PRN Reason: SEVERE CONSITIPATION Dextrose (D50w Vial) 50 ml IV.PUSH UNSCH PRN PRN Reason: PER HYPOGLYCEMIA PROTOCOL Enalaprilat (Vasotec Inj) 1.25 mg IV.PUSH Q6H PRN PRN Reason: SBP>160, DBP>90 Last Admin: 06/16/18 08:17 Dose: 1.25 mg Flumazenil (Romazicon Inj) 0.2 mg IV.PUSH Q1M PRN PRN Reason: OVERSEDATION Folic Acid (Folic Acid) 1 mg PO DAILY [facility] Last Admin: 06/18/18 07:24 Dose: 1 mg Glucagon (Glucagon Inj) 1 mg OTHER PRN PRN PRN Reason: for Hypoglycemia Protocol Haloperidol Lactate (Haldol Inj) 2 mg IV.PUSH Q6H PRN PRN Reason: AGITATION AND/OR HALLUCINATION Last Admin: 06/16/18 01:17 Dose: 2 mg Haloperidol Lactate (Haldol Inj) 1 mg IV.PUSH Q15M PRN PRN Reason: for severe agitation Sodium Chloride (Ns Inj) 1,000 mls @ 100 mls/hr IV.CONT .Q10H [facility] Last Admin: 06/18/18 04:19 Dose: 100 mls/hr Insulin Aspart (Novolog Insulin Correctional Sugar Inj) 0 unit SQ ACHS [facility]; Protocol Last Admin: 06/18/18 07:25 Dose: 3 unit Insulin Detemir (Levemir Inj) 5 unit SQ HS [facility] Last Admin: 06/17/18 20:33 Dose: 5 unit Labetalol HCl (Trandate) 100 mg PO BID [facility] Last Admin: 06/18/18 07:24 Dose: 100 mg Lactulose (Lactulose Liq) 30 ml PO DAILY PRN PRN Reason: SEVERE CONSITIPATION Lorazepam (Ativan Inj) 1 mg IV.PUSH Q4H PRN PRN Reason: for CIWA 8-10 Lorazepam (Ativan Inj) 2 mg IV.PUSH Q15M PRN PRN Reason: for CIWA > 20 Lorazepam (Ativan Inj) 2 mg IV.PUSH Q1H PRN PRN Reason: for CIWA 15-20 Lorazepam (Ativan Inj) 2 mg IV.PUSH Q2H PRN PRN Reason: for CIWA 11-14 Lorazepam (Ativan) 1 mg PO Q4H PRN PRN Reason: for CIWA 8-10 Last Admin: 06/16/18 23:49 Dose: 1 mg Lorazepam (Ativan) 2 mg PO Q2H PRN PRN Reason: for CIWA 11-14 Ondansetron HCl (Zofran Inj) 4 mg IV.PUSH Q6H PRN PRN Reason: NAUSEA OR VOMITING Senna/Docusate Sodium (Kristi-Colace) 1 tab PO BID [facility] Last Admin: 06/18/18 07:24 Dose: 1 tab Sennosides (Senokot) 17.2 mg PO Q12H PRN PRN Reason: Moderate Constipation Sodium Chloride (Ns Flush) 2 ml IV.FLUSH BID [facility] Last Admin: 06/17/18 20:33 Dose: Not Given Sodium Chloride (Ns Flush) 2 ml IV.FLUSH PRN PRN PRN Reason: FLUSH AFTER USING IV ACCESS Thiamine HCl (Vitamin B1) 100 mg PO DAILY [facility] Last Admin: 06/17/18 08:50 Dose: 100 mg Allergies/Adverse Reactions: Allergies Allergy/AdvReac Type Severity Reaction Status Date / Time No Known Allergies Allergy Verified 06/15/18 00:40 Physical Exam Vital signs: Vital Signs 06/17/18 12:00 06/17/18 15:57 06/17/18 20:00 Temperature 97.0 F L 98.7 F 97.8 F Pulse Rate 92 H 117 H 82 Respiratory Rate 20 20 16 Blood Pressure 126/69 174/84 H 142/76 H Pulse Oximetry 96 97 92 L 06/18/18 00:00 06/18/18 01:02 06/18/18 03:46 Temperature 96.7 F L 97.8 F Pulse Rate 89 82 Respiratory Rate 18 18 Blood Pressure 154/68 H 160/80 H Pulse Oximetry 96 98 96 06/18/18 04:00 02/20/19 07:27 06/18/18 08:00 Temperature 96 F L Pulse Rate 87 89 Respiratory Rate 20 Blood Pressure 152/92 H Pulse Oximetry 98 98 Intake & Output 06/17/18 06/18/18 06/18/18 18:59 06:59 18:59 Intake Total 480 / 480 1000 / 1000 Output Total 850 / 850 700 / 700 Balance -370 / -370 300 / 300 Weight 59.5 kg Intake: IV 1000 / 1000 NS Inj 1,000 ML @ 100 mls/hr IV 1000 / 1000 .CONT .Q10H [facility] Rx#:[id number] Oral 480 / 480 Output: Urine 400 / 400 700 / 700 Urine Amount (Catheter) 450 / 450 Indwelling Urethral Catheter 450 / 450 Other: Date of Last Bowel Movement 06/14/18 06/15/18 - Routine Neurological Exam alert Cn intact MOTOR 5/5 BUE and BLE - Urinary Catheter Management Indwelling Urethral Catheter Cath placed during this visit: no Reason for continuing: Acute urinary retention Objective Laboratory Results - last 24 hr 06/17/18 06/17/18 06/17/18 09:32 09:32 11:25 CBC w Diff WBC RBC Hgb Hct MCV MCH MCHC RDW Plt Count MPV Neut % (Auto) Lymph % (Auto) Dickenson % (Auto) Eos % (Auto) Baso % (Auto) Neut # (Auto) Lymph # (Auto) Dickenson # (Auto) Eos # (Auto) Baso # (Auto) WBC Differential Differential Comment Sodium Potassium Chloride Carbon Dioxide Anion Gap BUN Creatinine Estimated GFR POC Glucose 307 Random Glucose Calcium Total Bilirubin AST ALT Alkaline Phosphatase Total Protein Albumin CSF Volume (1) 2.8 CSF Supernat Color (1) Clear CSF Gross Blood (1) 3+ A CSF Volume (2) 3.0 CSF Supernat Color (2) Clear CSF Gross Blood (2) 2+ A CSF Volume (3) 2.5 CSF Supernat Color (3) Clear CSF Gross Blood (3) 2+ A CSF Volume (4) 4.8 CSF Supernat Color (4) Clear CSF Gross Blood (4) 1+ A CSF WBC (4) 0 CSF RBC (4) 1690 H CSF Neutrophils % Not Reportable CSF Glucose 151 H CSF Total Protein 124.0 H 06/17/18 06/17/18 06/18/18 16:10 20:26 05:58 CBC w Diff Auto diff final WBC 4.9 RBC 3.76 L Hgb 11.9 L Hct 35.1 L MCV 93.4 MCH 31.6 MCHC 33.8 RDW 12.8 Plt Count 182 MPV 9.3 Neut % (Auto) 58.7 Lymph % (Auto) 27.1 Dickenson % (Auto) 9.1 H Eos % (Auto) 3.8 Baso % (Auto) 1.3 Neut # (Auto) 2.9 Lymph # (Auto) 1.3 Dickenson # (Auto) 0.4 Eos # (Auto) 0.2 Baso # (Auto) 0.1 WBC Differential . Differential Comment . Sodium Potassium Chloride Carbon Dioxide Anion Gap BUN Creatinine Estimated GFR POC Glucose 295 220 Random Glucose Calcium Total Bilirubin AST ALT Alkaline Phosphatase Total Protein Albumin CSF Volume (1) CSF Supernat Color (1) CSF Gross Blood (1) CSF Volume (2) CSF Supernat Color (2) CSF Gross Blood (2) CSF Volume (3) CSF Supernat Color (3) CSF Gross Blood (3) CSF Volume (4) CSF Supernat Color (4) CSF Gross Blood (4) CSF WBC (4) CSF RBC (4) CSF Neutrophils % CSF Glucose CSF Total Protein 06/18/18 06/18/18 05:58 07:14 CBC w Diff WBC RBC Hgb Hct MCV MCH MCHC RDW Plt Count MPV Neut % (Auto) Lymph % (Auto) Dickenson % (Auto) Eos % (Auto) Baso % (Auto) Neut # (Auto) Lymph # (Auto) Dickenson # (Auto) Eos # (Auto) Baso # (Auto) WBC Differential Differential Comment Sodium 142 Potassium 3.8 Chloride 107 Carbon Dioxide 25.8 Anion Gap 9 BUN 9 Creatinine 0.69 Estimated GFR Greater than 89 POC Glucose 242 Random Glucose 197 H Calcium 8.4 L Total Bilirubin 0.4 AST 11 L ALT 17 Alkaline Phosphatase 67 Total Protein 6.1 L Albumin 3.0 L CSF Volume (1) CSF Supernat Color (1) CSF Gross Blood (1) CSF Volume (2) CSF Supernat Color (2) CSF Gross Blood (2) CSF Volume (3) CSF Supernat Color (3) CSF Gross Blood (3) CSF Volume (4) CSF Supernat Color (4) CSF Gross Blood (4) CSF WBC (4) CSF RBC (4) CSF Neutrophils % CSF Glucose CSF Total Protein Microbiology 06/17/18 09:32 Gram Stain - Final Lumbar Puncture CSF Culture - Preliminary No growth in 24 hours 06/17/18 09:32 Fungal Smear - Final Cerebral Spinal Fluid - Lumbar Puncture No fungal elements seen Diagnostic Tests: carotid US--no significant carotid stenosis echo--no embolic source CSF--elevated rbc, protein --probable traumatic tap. Review/Management - Review/Management Plan: mental status change due to right frontal stroke. Doubt encephalitis recommend asa 325 mg daily. 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
--- NOTE | 2018-06-18 09:23 | P.PNIM ---
Subjective Interval history: Follow-up after mental status change/encephalopathy June 18, 2018patient seen and examined, appears much more alert and oriented per 's report. Tolerated breakfast this a.m. Lumbar puncture without any evidence of encephalitis so far Physical Exam Vital signs: Vital Signs 06/17/18 12:00 06/17/18 15:57 06/17/18 20:00 Temperature 97.0 F L 98.7 F 97.8 F Pulse Rate 92 H 117 H 82 Respiratory Rate 20 20 16 Blood Pressure 126/69 174/84 H 142/76 H Pulse Oximetry 96 97 92 L 06/18/18 00:00 06/18/18 01:02 06/18/18 03:46 Temperature 96.7 F L 97.8 F Pulse Rate 89 82 Respiratory Rate 18 18 Blood Pressure 154/68 H 160/80 H Pulse Oximetry 96 98 96 06/18/18 04:00 06/18/18 07:27 06/18/18 07:35 Temperature Pulse Rate 87 Respiratory Rate Blood Pressure Pulse Oximetry 98 98 06/18/18 08:00 Temperature 96 F L Pulse Rate 89 Respiratory Rate 20 Blood Pressure 152/92 H Pulse Oximetry 98 Intake & Output 06/17/18 06/18/18 06/18/18 18:59 06:59 18:59 Intake Total 480 / 480 1000 / 1000 Output Total 850 / 850 700 / 700 Balance -370 / -370 300 / 300 Weight 59.5 kg Intake: IV 1000 / 1000 NS Inj 1,000 ML @ 100 mls/hr IV 1000 / 1000 .CONT .Q10H [facility] Rx#:[id number] Oral 480 / 480 Output: Urine 400 / 400 700 / 700 Urine Amount (Catheter) 450 / 450 Indwelling Urethral Catheter 450 / 450 Other: Date of Last Bowel Movement 06/14/18 06/15/18 Narrative: GENERAL: Well-developed, well-nourished, in no acute distress. HEENT: Head is normocephalic without any lesions or masses noted. Facial features are symmetric. Eyes: Patient does have injected conjunctivae on the right eye with obvious surgical changes extraocular muscles are intact. NECK: Supple without any masses. Trachea midline no deviation. No JVD, CARDIAC: Regular rhythm, regular rate. S1/S2 are heard. No murmurs gallops or rubs. LUNGS: Clear to auscultation bilaterally. No wheeze, rhonchi or rales. No use of accessory muscles on inspiration or expiration. ABDOMEN: Soft, nontender. Nondistended. Bowel sounds heard in all 4 quadrants. No organomegaly or masses. Negative rebound, negative guarding EXTREMITIES: No edema, pulses are equal bilaterally. No cyanosis or clubbing NEUROLOGY: Mood and affect appear appropriate. Cranial nerves II through XII grossly intact. Moving all extremities, speech is clear. Urinary Catheter Management Indwelling Urethral Catheter: Cath placed during this visit: no Reason for continuing: Acute urinary retention Results Labs CBC & Chem 7: 06/18/18 05:58 06/18/18 05:58 Labs: Microbiology 06/17/18 09:32 Lumbar Puncture Gram Stain - Final 06/17/18 09:32 Lumbar Puncture CSF Culture - Preliminary No growth in 24 hours 06/17/18 09:32 Cerebral Spinal Fluid - Lumbar Puncture Fungal Smear - Final No fungal elements seen Imaging Imaging: Impressions Lumbar Puncture Fluoroscopy 06/17/18 00:00 CONCLUSION: 1. Uncomplicated fluoroscopically guided lumbar puncture. Assessment and Plan Plan 77-year-old man with Encephalopathy-improving CT of the brain was unremarkable for any acute abnormality MRI of the brain: Faint subcortical signal changes including slightly restricted diffusion and mild enhancement of the right frontal lobe and adjacent basal ganglia, probably a subacute to chronic infarct. A low-grade/ mild encephalitis is conceivable but considered less likely. Clinical correlation and MRI surveillance recommended. Additional labs to include sed rate, B12, folate, Ammonia level was normal, TSH was normal were unremarkable EEG: Mild encephalopathy and possible sleep state. Clinical correlation. Haldol as needed Appreciate input from neurology Status post lumbar puncture 06/17 with elevated glucose and protein. CSF herpes 1 and 2 DNA pending Hypertension, hyperlipidemia Currently on Norvasc 10 mg daily Vasotec as needed Diabetes, uncontrolled We will start low-dose Levemir 5 units at at bedtime Accu-Cheks with sliding scale insulin Urinary tract infection UA negative Daily alcohol use Need to monitor for withdrawal CIWA protocol Continue thiamine and folic acid DVT prevention Sequential compression devices Progress Note: Quality VTE Deep Vein Thrombosis/Pulmonary Embolism Present on Admission: No
--- NOTE | 2018-06-18 09:30 | P.DCO ---
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 My clinical findings support the need for the requested home health care services because: Limited mobility due to disease progression I certify that my clinical findings support that this patient is homebound because: Poor cardiac reserve
--- NOTE | 2018-06-18 09:34 | P.DS ---
DS: Providers Date of admission: 06/16/18 12:05 Primary care physician: Gagan Fermin Consults: 06/16/18 14:20 Consult to Neurology Routine Consulting Provider: Jean Claude Tong Reason for Consultation: altered mental status, abnormal MRI, appreciate recommendations Notified:: Office Spoke with:: Alex Date Notified:: 06/16/18 Time Notified:: 14:25 Brief History from admission: 77-year-old [place] male with known history of hypertension, hyperlipidemia, diabetes who presented to the hospital for evaluation of altered mental status. The patient is orientated to self, state, not the city. He knows he is in the hospital. He knows the month and year. But not day of the week. He does know [place] is the president and is trying to build a wall. However patient does have some altered mentation and information was taken from family at bedside. It was indicated that the patient had glaucoma surgery on his right eye about 6 months ago and since then he has had a change in mentation. They indicate a change in mentation has been with memory problems, visual hallucinations. Somewhat mentioned to him that he may be developing dementia. They indicated that they did notify their primary medical doctor and they were told that they needed to get a referral to a neurologist for further evaluation and management. Because the patient has not get any better they came to the hospital for evaluation. 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 They indicate that the patient was rather active. Drinker anywhere from 4 or more beers daily. Patient's indicates that since he had his glaucoma surgery he has cut back on his alcohol intake and since then his mentation has worsened. Patient had evaluation in emergency department and found to have uncontrolled diabetes, possible urinary tract infection and because of that it was recommended that the patient be observed in the hospital for further evaluation and management. 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 EEG was obtained with finding of a mild encephalopathy possibly sleep states however without any evidence of seizure disorder. Patient underwent a lumbar puncture on June 17, 2018 with did not show any evidence of encephalitis. Patient's mentation is improved. Secondary to benign labile hypertension, he was started on Norvasc and labetalol with improvement of blood pressure. He was also placed on sliding scale insulin and his oral antihyperglycemic agents was held. Low- dose Levemir 5 units was added. Patient was placed on the CIWA protocol and rally pack was added. DVT prophylaxis was provided. PT was consulted. Prior to discharge patient's conditions improved and vitals remained stable. Time Spent with Patient Total time spent providing and/or coordinating discharge services: Greater than 30 minutes Quality: VTE Deep Vein Thrombosis/Pulmonary Embolism Present on Admission: No Exam Narrative Exam Narrative: GENERAL: NAD SKIN: Warm and dry. HEAD: Atraumatic. Normocephalic. EYES: Pupils equal and round. No scleral icterus. No injection or drainage. ENT: No nasal bleeding or discharge. Mucous membranes pink and moist. NECK: Trachea midline. No JVD. CARDIOVASCULAR: Regular rate and rhythm. RESPIRATORY: No accessory muscle use. Clear to auscultation. Breath sounds equal bilaterally. GASTROINTESTINAL: Abdomen soft, non-tender, nondistended. Hepatic and splenic margins not palpable. MUSCULOSKELETAL: Extremities without clubbing, cyanosis, or edema. No obvious deformities. NEUROLOGICAL: Awake and alert. No obvious cranial nerve deficits. Motor grossly within normal limits. Five out of 5 muscle strength in the arms and legs. Normal speech. PSYCHIATRIC: Appropriate mood and affect; insight and judgment normal. Results Labs on day of discharge: Labs from last 24 hours 06/18/18 06/18/18 06/18/18 07:14 05:58 05:58 CBC w Diff Auto diff final WBC 4.9 RBC 3.76 L Hgb 11.9 L Hct 35.1 L MCV 93.4 MCH 31.6 MCHC 33.8 RDW 12.8 Plt Count 182 MPV 9.3 Neut % (Auto) 58.7 Lymph % (Auto) 27.1 [place] % (Auto) 9.1 H Eos % (Auto) 3.8 Baso % (Auto) 1.3 Neut # (Auto) 2.9 Lymph # (Auto) 1.3 [place] # (Auto) 0.4 Eos # (Auto) 0.2 Baso # (Auto) 0.1 WBC Differential . Differential Comment . Sodium 142 Potassium 3.8 Chloride 107 Carbon Dioxide 25.8 Anion Gap 9 BUN 9 Creatinine 0.69 Estimated GFR Greater than 89 POC Glucose 242 Random Glucose 197 H Calcium 8.4 L Total Bilirubin 0.4 AST 11 L ALT 17 Alkaline Phosphatase 67 Total Protein 6.1 L Albumin 3.0 L CSF Volume (1) CSF Supernat Color (1) CSF Gross Blood (1) CSF Volume (2) CSF Supernat Color (2) CSF Gross Blood (2) CSF Volume (3) CSF Supernat Color (3) CSF Gross Blood (3) CSF Volume (4) CSF Supernat Color (4) CSF Gross Blood (4) CSF WBC (4) CSF RBC (4) CSF Neutrophils % CSF Glucose CSF Total Protein CSF Cryptococcus Ag CSF Herpes I DNA (PCR) CSF Herpes II DNA (PCR) 06/17/18 06/17/18 06/17/18 20:26 16:10 11:25 CBC w Diff WBC RBC Hgb Hct MCV MCH MCHC RDW Plt Count MPV Neut % (Auto) Lymph % (Auto) [place] % (Auto) Eos % (Auto) Baso % (Auto) Neut # (Auto) Lymph # (Auto) [place] # (Auto) Eos # (Auto) Baso # (Auto) WBC Differential Differential Comment Sodium Potassium Chloride Carbon Dioxide Anion Gap BUN Creatinine Estimated GFR POC Glucose 220 295 307 Random Glucose Calcium Total Bilirubin AST ALT Alkaline Phosphatase Total Protein Albumin CSF Volume (1) CSF Supernat Color (1) CSF Gross Blood (1) CSF Volume (2) CSF Supernat Color (2) CSF Gross Blood (2) CSF Volume (3) CSF Supernat Color (3) CSF Gross Blood (3) CSF Volume (4) CSF Supernat Color (4) CSF Gross Blood (4) CSF WBC (4) CSF RBC (4) CSF Neutrophils % CSF Glucose CSF Total Protein CSF Cryptococcus Ag CSF Herpes I DNA (PCR) CSF Herpes II DNA (PCR) 06/17/18 06/17/18 06/17/18 09:32 09:32 09:32 CBC w Diff WBC RBC Hgb Hct MCV MCH MCHC RDW Plt Count MPV Neut % (Auto) Lymph % (Auto) [place] % (Auto) Eos % (Auto) Baso % (Auto) Neut # (Auto) Lymph # (Auto) [place] # (Auto) Eos # (Auto) Baso # (Auto) WBC Differential Differential Comment Sodium Potassium Chloride Carbon Dioxide Anion Gap BUN Creatinine Estimated GFR POC Glucose Random Glucose Calcium Total Bilirubin AST ALT Alkaline Phosphatase Total Protein Albumin CSF Volume (1) 2.8 CSF Supernat Color (1) Clear CSF Gross Blood (1) 3+ A CSF Volume (2) 3.0 CSF Supernat Color (2) Clear CSF Gross Blood (2) 2+ A CSF Volume (3) 2.5 CSF Supernat Color (3) Clear CSF Gross Blood (3) 2+ A CSF Volume (4) 4.8 CSF Supernat Color (4) Clear CSF Gross Blood (4) 1+ A CSF WBC (4) 0 CSF RBC (4) 1690 H CSF Neutrophils % Not Reportable CSF Glucose 151 H CSF Total Protein 124.0 H CSF Cryptococcus Ag Pending CSF Herpes I DNA (PCR) Pending CSF Herpes II DNA (PCR) Pending Preliminary micro results at discharge 06/17/18 09:32 CSF Culture - Preliminary Lumbar Puncture No growth in 24 hours Impressions ITS Impressions Carotid Doppler Study 06/16/18 00:00 CONCLUSION: 1. Right Internal Carotid Artery: No significant stenosis or atherosclerotic plaque is visualized. 2. Left Internal Carotid Artery: No significant stenosis or atherosclerotic plaque is visualized. Head MRI 06/16/18 00:00 CONCLUSION: 1. Faint subcortical signal changes including slightly restricted diffusion and mild enhancement of the right frontal lobe and adjacent basal ganglia, probably a subacute to chronic infarct. A low-grade/mild encephalitis is conceivable but considered less likely. Clinical correlation and MRI surveillance recommended. 2. Atrophy and severe chronic white matter changes. Lumbar Puncture Fluoroscopy 06/17/18 00:00 CONCLUSION: 1. Uncomplicated fluoroscopically guided lumbar puncture. Discharge Plan Discharge Disposition Patient Disposition: Discharge to SNF Discharge Order Discharge Orders: Discharge Order (Routine); Ordered 06/18/18 Ordered By: Andrew Licona Physicians Team Attending Provider: Andrew Licona Other Providers: Jean Claude Tong Rxs /Orders / Referrals /Forms Prescriptions: New amlodipine [Norvasc] 10 mg Tablet 10 mg PO DAILY Qty: 30 RF: 3 labetalol 100 mg Tablet 100 mg PO BID Qty: 60 RF: 3 aspirin 325 mg tablet 325 mg PO DAILY Qty: 30 RF: 3 Continue metformin 500 mg Tablet 500 mg PO BID RF: 0 Referrals: Gagan Fermin [Other] - See Instructions Discharge Interventions Interventions: Discharge Planning - Case Management Last Done: 02/17/19 13:49 Status ED Status: Admitted Observation Patient
[2018-06-18] MEDS: Insulin Detemir Inj 1,000 UNIT/10 ML Vial SQ SCH (22:10)
[2018-06-18 23:08] LABS: Potassium 3.2 meq/L (3.5-5.1)
[2018-06-18 23:11] LABS: Magnesium 1.8 mg/dL (1.5-2.5)
[2018-06-19] MEDS: Sod Chloride 0.9% Inj 1,000 ML IV.CONT SCH ×2 (00:35→10:19)
[2018-06-19] MEDS ORDERED: Potassium Chloride 25 MEQ Effervescent Tablet PO ONE (01:18)
--- NOTE | 2018-06-19 08:27 | P.PNIM ---
Subjective Interval history: Follow-up with ischemic CVA of frontal lobe/encephalopathy June 19, 2018patient seen and examined, no acute event overnight, looking forward going to rehab today. Physical Exam Vital signs: Vital Signs 06/18/18 12:00 06/18/18 16:00 06/18/18 20:00 Temperature 99.3 F 98 F 98.6 F Pulse Rate 82 101 H 82 Respiratory Rate 20 18 18 Blood Pressure 126/66 159/76 H 140/62 Pulse Oximetry 96 97 93 L 06/18/18 20:35 06/18/18 21:40 06/19/18 00:00 Temperature 98.1 F Pulse Rate 88 81 Respiratory Rate 18 Blood Pressure 117/74 117/69 Pulse Oximetry 96 94 L 95 06/19/18 04:00 Temperature 97.3 F L Pulse Rate 85 Respiratory Rate 18 Blood Pressure 147/75 H Pulse Oximetry 95 Intake & Output 06/18/18 06/19/18 06/19/18 18:59 06:59 18:59 Intake Total 1065 / 1065 1365 / 1365 Output Total 1350 / 1350 600 / 600 Balance -285 / -285 765 / 765 Weight 62.5 kg Intake: IV 825 / 825 1000 / 1000 NS Inj 1,000 ML @ 100 mls/hr IV 825 / 825 1000 / 1000 .CONT .Q10H [facility] Rx#:[id number] Oral 240 / 240 365 / 365 Output: Urine 525 / 525 600 / 600 Urine Amount (Catheter) 825 / 825 Indwelling Urethral Catheter 825 / 825 Other: Date of Last Bowel Movement 06/15/18 Narrative: GENERAL: Well-developed, well-nourished, in no acute distress. HEENT: Head is normocephalic without any lesions or masses noted. Facial features are symmetric. Eyes: Patient does have injected conjunctivae on the right eye with obvious surgical changes extraocular muscles are intact. NECK: Supple without any masses. Trachea midline no deviation. No JVD, CARDIAC: Regular rhythm, regular rate. S1/S2 are heard. No murmurs gallops or rubs. LUNGS: Clear to auscultation bilaterally. No wheeze, rhonchi or rales. No use of accessory muscles on inspiration or expiration. ABDOMEN: Soft, nontender. Nondistended. Bowel sounds heard in all 4 quadrants. No organomegaly or masses. Negative rebound, negative guarding EXTREMITIES: No edema, pulses are equal bilaterally. No cyanosis or clubbing NEUROLOGY: Mood and affect appear appropriate. Cranial nerves II through XII grossly intact. Moving all extremities, speech is clear. 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 A low-grade/ mild encephalitis is conceivable but considered less likely. Clinical correlation and MRI surveillance recommended. Additional labs to include sed rate, B12, folate, Ammonia level was normal, TSH was normal were unremarkable EEG: Mild encephalopathy and possible sleep state. Clinical correlation. Haldol as needed Appreciate input from neurology Status post lumbar puncture 06/17 with elevated glucose and protein. CSF herpes 1 and 2 DNA pending Hypertension, hyperlipidemia Currently on Norvasc 10 mg daily Vasotec as needed Diabetes, uncontrolled We will start low-dose Levemir 5 units at at bedtime Accu-Cheks with sliding scale insulin Urinary tract infection UA negative Daily alcohol use Need to monitor for withdrawal CIWA protocol Continue thiamine and folic acid DVT prevention Sequential compression devices Progress Note: Quality VTE Deep Vein Thrombosis/Pulmonary Embolism Present on Admission: No
[2018-06-19] MEDS: Insulin NovoLOG Aspart Correctional Sugar Inj SQ SCH ×2 (09:00→11:37)
[2018-06-19] MEDS: Labetalol 100 MG Tablet PO SCH (09:00)
[2018-06-19] MEDS: Senna/Docusate Sodium 8.6/50 MG Tablet PO SCH (09:00)
[2018-06-19] MEDS: amLODIPine 10 MG Tablet PO SCH (09:00)
[2018-06-19] MEDS: Folic Acid 1 MG Tablet PO SCH (09:00)
[2018-06-19 09:57] VITALS: RESP 20
[2018-06-19 12:56] VITALS: BP 120/66; PULSE 91; TEMP 98; O2SAT 96
[2018-06-20 15:03] LABS: Eosinophils,CSF 2 %; Lymphocytes, CSF 18 %; Monocytes,CSF 12 %; Neutrophils,CSF 68 %
== END 2018-06-19 17:05 | DRG 65 ==
LOC: PH3 22:51 → PHEDDLT 22:51
PROVIDERS: ADMIT Hospitalist; ATTEND Hospitalist
CPT/HCPCS: 51702; 62270; 70450; 70553; 71010; 71045; 77003; 80048; 80053; 80061; 81001; 82010; 82140; 82607; 82746; 82945; 82948; 82962; 83036; 83735; 84132; 84155; 84157; 84443; 84484; 85025; 85610; 85651; 85652; 86403; 86406; 86592; 87040; 87070; 87086; 87102; 87205; 87206; 87275; 87276; 87327; 87449; 87529; 87804; 89051; 90761; 90765; 90775; 93005; 93306; 93880; 95819; 96360; 96361; 96365; 96372; 96375; 97110; 97162; 97530; 99291; A9585; G0378; G8987; G8988; J0696; J1630; J1815; J2060; J7030